=== PATIENT | female | born 1995 | race American Indian/Alaskan Native ===

== ENCOUNTER 2017-03-19 17:33 | Emergency (ER) | payer OTHER ==
[2017-03-19 18:10] LABS: Basophils % (Auto) 0.8 % (0.0-1.8); Eosinophils % (Auto) 4.4 % (0.0-4.3); Hematocrit 39.6 % (30.3-42.9); Hemoglobin 13.1 gm/dl (10.1-14.3); Mean Corpuscular HGB Conc 33 % (30-34); Mean Corpuscular Hemoglobin 28 pg (28-32); Mean Corpuscular Volume 84 fl (79-97); Red Blood Count 4.71 M/mm3 (3.65-5.03); Red Cell Distribution Width 14.2 % (13.2-15.2); White Blood Count 8.4 K/mm3 (4.5-11.0)
[2017-03-19 18:16] LABS: Platelet Count 252 K/mm3 (140-440)
[2017-03-19 18:24] LABS: Bilirubin,Urine NEG (Negative); Blood,Urine NEG (Negative); Ketones,Urine NEG (Negative); Leukocyte Esterase,Urine NEG (Negative); Mucus,Urine FEW /HPF; Nitrite,Urine NEG (Negative); Protein,Urine <15 mg/dL mg/dL (Negative); Urobilinogen,Urine < 2.0 mg/dL (<2.0); WBC,Urine < 1.0 /HPF (0.0-6.0)
[2017-03-19 18:32] LABS: Alanine Aminotransferase 16 units/L (7-56); Albumin 3.7 g/dL (3.9-5); Albumin/Globulin Ratio 1.1 %; Alkaline Phosphatase 78 units/L (35-129); Anion Gap 15 mmol/L; BUN/Creatinine Ratio 14.28; Blood Urea Nitrogen 10 mg/dL (7-17); Calcium 8.7 mg/dL (8.4-10.2); Carbon Dioxide 24 mmol/L (22-30); Chloride 103.2 mmol/L (98-107); Glucose 97 mg/dL (65-100); Lipase 26 units/L (13-60); Potassium 4.3 mmol/L (3.6-5.0); Sodium 138 mmol/L (137-145)
[2017-03-19] MEDS ORDERED: TORADOL IM ONE (20:48)
--- NOTE | 2017-03-19 20:54 | Emergency Department Report ---
HPI - General Chief Complaint: Abdominal Pain Time Seen by Provider: 03/19/17 19:02 - HPI HPI: The patient is 21-year-old female presents for evaluation of chest pain. The patient reports chest pain for the past 10 days, left side in location, 7/10 in severity, sharp in quality, chest pain with movement of the left arm. She states that she is experiencing similar pains in previous months. The patient denies fever, trauma to the chest, cough, dyspnea, syncope, hemoptysis, unilateral leg swelling, oral contraceptive use, recent immobilization, history of DVT or PE, recent cancer, history of familial coagulation disorder. ED Past Medical Hx - Past Medical History Previous Medical History?: No - Surgical History Past Surgical History?: No - Social History Smoking Status: Never Smoker Substance Use Type: Alcohol, Marijuana, Tranquilizers - Medications Home Medications: Home Medications Medication Instructions Recorded Confirmed Last Taken Type Omeprazole Magnesium [PriLOSEC Otc] 20 mg PO QDAY #14 tablet. 03/19/17 Unknown Rx traMADol [Ultram 50 MG tab] 50 mg PO Q6HR PRN #10 tablet 03/19/17 Unknown Rx ED Review of Systems ROS: Stated complaint: LT BREAST PAIN/HEADACHES/ABD PAIN Other details as noted in HPI Constitutional: denies: fever ENT: denies: throat or neck pain Respiratory: denies: cough, shortness of breath Cardiovascular: reports chest pain Endocrine: denies unexplained weight loss or gain Gastrointestinal: denies: abdominal pain, nausea Genitourinary: denies: dysuria Musculoskeletal: denies: leg swelling Skin: denies: rash Neurological: denies: headache Hematological/Lymphatic: denies: easy bleeding or easy bruising Psych: denies sadness or hopelessness Physical Exam - Physical Exam Vital Signs: Vital Signs 03/19/17 17:44 Temperature 98.7 F Pulse Rate 91 H Respiratory 17 Rate Blood Pressure 123/80 O2 Sat by Pulse 100 Oximetry Physical Exam: General: well-nourished, well-developed, no acute distress Head: Normocephalic, atraumatic Eyes: normal sclera ENT: Mucous membranes are pink and moist Neck: trachea midline, neck supple, No neck stiffness, no cervical adenopathy Respiratory: Breath sounds equal bilaterally, no wheezing, rales, or rhonchi Cardio: S1 and S2 present, no murmurs, rubs, gallops, capillary refill is brisk Abdomen: Normoactive bowel sounds, soft abdomen, no rigidity, no guarding or rebound tenderness Chest WALL/Back: No tenderness to palpation of the chest wall, no CVA tenderness with percussion Musc: No pitting edema Skin: No rash Neuro: no facial drooping, normal speech Psych: Normal affect ED Course Vital Signs 03/19/17 17:44 Temperature 98.7 F Pulse Rate 91 H Respiratory 17 Rate Blood Pressure 123/80 O2 Sat by Pulse 100 Oximetry ED Medical Decision Making - Lab Data Result diagrams: 03/19/17 17:57 03/19/17 17:57 - Medical Decision Making The patient was seen and examined by myself. The patient is placed on a air reduction equipment operator and continuous pulse ox. On initial evaluation, the patient was found to be in no distress. EKG was negative for findings suggestive of acute cardiac infarct. Labs and imaging are obtained. The patient is given an IM dose of Toradol for her pain. Chest x-ray is negative for pneumothorax, focal consolidation, pulmonary vascular congestion, pleural effusion, or other obvious acute cardiopulmonary disease process. Lab results were non-concerning including levels of troponin, WBC, hemoglobin, hematocrit, electrolytes, renal function. The patient was reevaluated and reported that their symptoms were markedly improved. As the patient has a KYRA risk score less than 2, and a well 's score less than 2, the patient is at low risk of ACS or pulmonary emboli etiology of their symptoms. The patient is stable for discharge with outpatient follow-up. The patient is given follow-up and return instructions. The patient expressed understanding and agreed with the plan. The patient is discharged in stable condition. Critical care attestation.: If time is entered above; I have spent that time in minutes in the direct care of this critically ill patient, excluding procedure time. ED Disposition Clinical Impression: Acute chest pain Disposition: DISCHARGED TO HOME OR SELFCARE Is pt being admited?: No Does the pt Need Aspirin: No Condition: Stable Instructions: Abdominal Pain (ED), Chest Pain (ED) Referrals: PRIMARY CARE, [Primary Care Provider] - 3-5 Days Time of Disposition: 21:43
[2017-03-19 22:50] VITALS: BP 113/69
--- NOTE | 2017-03-20 10:30 | XRay Report ---
AP CHEST: HISTORY: chest pain AP view of the chest demonstrates a normal mediastinal and cardiac contour with clear lungs and normal bony and soft tissue structures. IMPRESSION: Unremarkable AP chest.
== END 2017-03-19 22:50 | disposition home or self-care (01) ==
LOC: ED 17:33
DX: R07.89 Other chest pain (principal); F12.10 Cannabis abuse, uncomplicated
CPT/HCPCS: 36415; 71010; 80053; 81001; 83690; 84703; 85025; 96372; 99284; J1885

== ENCOUNTER 2018-07-24 14:22 | Emergency (ER) | payer OTHER ==
[2018-07-24 15:09] VITALS: BP 120/69
--- NOTE | 2018-07-24 18:24 | Emergency Department Report ---
ED Rash HPI - HPI Chief Complaint: Skin Rash Stated Complaint: RASH Duration: 1 week Location: Neck Suspected Cause: Unknown Rash Symptoms: Yes Itching, No Facial Swelling, No Tongue/Oral Swelling, No Breathing Difficulties, No Choking Sensation, No Wheezing/Dyspnea, No Peeling, No Blistering, No Fever, No Lightheaded, No Malaise, No Myalgias Other History: This is a 22-year-old -[place] female presents with rash for 1 month. She is apply Neosporin and home remedies with no improvement of symptoms. Patient states rash started out on the right side of neck and spread around neck. Patient reports rash is itchy and soler. Patient denies drainage , swelling, ED Review of Systems ROS: Stated complaint: RASH Other details as noted in HPI Constitutional: denies: chills, fever Respiratory: denies: cough, shortness of breath, wheezing Cardiovascular: denies: chest pain, palpitations Skin: rash (neck). denies: lesions Neurological: denies: headache, weakness, paresthesias Psychiatric: denies: anxiety, depression ED Past Medical Hx - Past Medical History Hx Arthritis: No - Surgical History Hx Appendectomy: No - Social History Smoking Status: Current Every Day Smoker Substance Use Type: Marijuana - Medications Home Medications: Home Medications Medication Instructions Recorded Confirmed Last Taken Type Omeprazole Magnesium [PriLOSEC Otc] 20 mg PO QDAY #14 tablet. 03/19/17 Unknown Rx traMADol [Ultram 50 MG tab] 50 mg PO Q6HR PRN #10 tablet 03/19/17 Unknown Rx Diphenhydramine HCl/Zinc Acet 28.3 gm TP QID #1 cream..g. 07/24/18 Unknown Rx [Benadryl Itch Stopping Crm] Triamcinolone 0.5% [Kenalog 0.5% 1 applic TP TID #1 tube 07/24/18 Unknown Rx CREAM] Rash Exam - Exam General: Vital signs noted. No distress. Alert and acting appropriately. HEENT: No Periorbital Edema, No Conjuctival Injection, No Chemosis, No Perioral Edema, No Tongue Edema, No Uvular Edema, No Compromised Airway, No Drooling Lungs: Yes Good Air Exchange (Normal Breath Sounds), No Wheezes, No Ronchi, No Stridor, No Cough, No Labored Respirations, No Retractions, No Use of Accessory Muscles, No Other Abnormal Lung Sounds Heart: Yes Regular, No Murmur Skin: Yes Maculopapular Rash (erythematous scaling rash around her neck), Yes Erythema, No Morbilliform rash, No Bulla(e), No Excoriations, No Weeping, No Tenderness, No Edema, No Encrustations ED Course Vital Signs 07/24/18 15:03 Pulse Rate 79 Blood Pressure 120/69 O2 Sat by Pulse 99 Oximetry ED Medical Decision Making - Medical Decision Making Patient was examined by me. Vitals are normal and patient is in no acute distress. Physical findings consistent with contact dermatitis to neck. Given dexamethasone 8 mg IM once while in ER. Start triamcinolone cream and Benadryl topical gel. She agrees with ER plan. Patient discharged home in stable condition. 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 Follow up with PCP in 2-3 days. Critical care attestation.: If time is entered above; I have spent that time in minutes in the direct care of this critically ill patient, excluding procedure time. ED Disposition Clinical Impression: Rash of neck Contact dermatitis Qualifiers: Contact dermatitis type: irritant Contact dermatitis trigger: unspecified trigger Qualified Code(s): L24.9 - Irritant contact dermatitis, unspecified cause Disposition: - TO HOME OR SELFCARE Is pt being admited?: No Does the pt Need Aspirin: No Condition: Stable Instructions: Contact Dermatitis (ED) Additional Instructions: Apply a thin layer of triamcinolone cream twice a day for 5-10 days. Wash area prior to applying cream. Use Benadryl topical gel for itching. Follow-up with dermatology and allergy specialists for further testing. Prescriptions: Diphenhydramine HCl/Zinc Acet [Benadryl Itch Stopping Crm] 28.3 gm TP QID #1 cream..g. Triamcinolone 0.5% [Kenalog 0.5% CREAM] 1 applic TP TID #1 tube Referrals: [facility] [Provider Group] - 3-5 Days [facility] [Provider Group] - 3-5 Days Time of Disposition: 18:33 Print Language: VIETNAMESE
[2018-07-24] MEDS ORDERED: DECADRON IM ONE (18:26)
== END 2018-07-24 18:51 | disposition home or self-care (01) ==
LOC: ED 14:22
DX: L25.9 Unspecified contact dermatitis, unspecified cause (principal); F17.200 Nicotine dependence, unspecified, uncomplicated; F12.90 Cannabis use, unspecified, uncomplicated
CPT/HCPCS: 96372; 99282; J1100

== ENCOUNTER 2018-12-05 17:22 | Emergency (ER) | payer OTHER ==
[2018-12-05 17:31] VITALS: BP 129/53
--- NOTE | 2018-12-05 17:31 | Emergency Department Report ---
Blank Doc - Documentation Documentation: This is a 23-year-old female that presents with left lower back pain radiates to left lower abdominal pain. Patient also stated has some vaginal spotting. Denies any nausea or vomiting. Denies any urinary symptoms. Denies other symptoms or compliant. This initial assessment diagnostic orders/clinical plan/treatment(s) is/are subject to change based on patient's health status, clinical progression and re- assessment by fellow clinical providers in the ED. Further treatment and workup at subsequent clinical providers discretion. Patient/guardians urged not to elope from ED s their condition may be serious if not clinically assessed and managed. Initial orders include: 1-Patient sent to [facility] for further evaluation and treatment 2- Labs 3- UA
[2018-12-05 18:54] LABS: Basophils % (Auto) 0.7 % (0.0-1.8); Eosinophils # (Auto) 0.2 K/mm3 (0.0-0.4); Eosinophils % (Auto) 3.5 % (0.0-4.3); Hematocrit 40.9 % (30.3-42.9); Hemoglobin 14.2 gm/dl (10.1-14.3); Lymphocytes # (Auto) 2.7 K/mm3 (1.2-5.4); Lymphocytes % (Auto) 43.8 % (13.4-35.0); Mean Corpuscular HGB Conc 35 % (30-34); Mean Corpuscular Volume 84 fl (79-97); Monocytes # (Auto) 0.5 K/mm3 (0.0-0.8); Monocytes % (Auto) 7.3 % (0.0-7.3); Platelet Count 288 K/mm3 (140-440); Red Blood Count 4.86 M/mm3 (3.65-5.03); Red Cell Distribution Width 13.1 % (13.2-15.2)
[2018-12-05 19:31] LABS: Alanine Aminotransferase 9 units/L (7-56); Albumin 4.3 g/dL (3.9-5); BUN/Creatinine Ratio 8; Blood Urea Nitrogen 4 mg/dL (7-17); Calcium 9.2 mg/dL (8.4-10.2); Hemolysis Index 10
[2018-12-05 20:31] LABS: Bacteria,Urine 1+ /HPF (Negative); Bilirubin,Urine NEG (Negative); Blood,Urine NEG (Negative); Color,Urine Yellow (Yellow); Protein,Urine <15 mg/dL mg/dL (Negative); RBC,Urine < 1.0 /HPF (0.0-6.0); Urobilinogen,Urine < 2.0 mg/dL (<2.0)
== END 2018-12-05 19:14 | disposition left against medical advice (07) ==
LOC: ED 17:22
DX: R10.2 Pelvic and perineal pain (principal); Z53.21 Procedure and treatment not carried out due to patient leaving prior to being seen by health care provider
CPT/HCPCS: 36415; 80053; 81001; 84702; 85025

== ENCOUNTER 2018-12-06 12:11 | Emergency (ER) | payer OTHER ==
[2018-12-06 12:59] VITALS: BP 116/57
--- NOTE | 2018-12-06 13:01 | Emergency Department Report ---
Blank Doc - Documentation Documentation: 23 year ole female presents to ED c/o of pain to pelvic region for 2-3 days and no menses since first week October. No fever or chills. Denies vaginal discharge Plan Labs and urine
[2018-12-06 13:34] LABS: Basophils # (Auto) 0.1 K/mm3 (0.0-0.1); Eosinophils # (Auto) 0.2 K/mm3 (0.0-0.4); Eosinophils % (Auto) 3.2 % (0.0-4.3); Hematocrit 40.9 % (30.3-42.9); Hemoglobin 13.9 gm/dl (10.1-14.3); Lymphocytes # (Auto) 2.3 K/mm3 (1.2-5.4); Lymphocytes % (Auto) 42.5 % (13.4-35.0); Mean Corpuscular HGB Conc 34 % (30-34); Mean Corpuscular Volume 85 fl (79-97); Monocytes # (Auto) 0.4 K/mm3 (0.0-0.8); Monocytes % (Auto) 8.2 % (0.0-7.3); Platelet Count 310 K/mm3 (140-440); Red Cell Distribution Width 12.9 % (13.2-15.2)
[2018-12-06 13:55] LABS: BUN/Creatinine Ratio 8; Blood Urea Nitrogen 4 mg/dL (7-17); Hemolysis Index 373
[2018-12-06 13:56] LABS: Bilirubin,Direct < 0.2 mg/dL (0-0.2)
[2018-12-06 13:57] LABS: Alanine Aminotransferase 10 units/L (7-56)
--- NOTE | 2018-12-06 14:22 | Emergency Department Report ---
ED Female HPI - General Chief complaint: Abdominal Pain Stated complaint: STOMACH PAIN/SIDE PAIN Time Seen by Provider: 12/06/18 12:55 Source: patient Mode of arrival: Ambulatory Limitations: No Limitations - History of Present Illness Initial comments: This is a 23-year-old female who presents ED complaining of vaginal spotting and lower pelvic pain for the past week. Patient describes pain as stabbing and aching pain which is have not 10 intensity. She denies dysuria, vaginal discharge, vomiting, diarrhea, chest pain. Patient admits mild nausea from time to time. She states last menstrual period was 10/16/2018. Complaint: vaginal bleeding -: Gradual, week(s) (1) Radiation: non-radiating Severity: moderate Severity scale (0 -10): 6 Quality: cramping, stabbing, aching Worsens with: none Are you Now?: Yes Last Menstrual Period: 10/16/18 EDC: 07/23/19 Associated Symptoms: abdominal pain, nausea/vomiting - Related Data Sexually active: Yes Previous Rx's Medication Instructions Recorded Last Taken Type Omeprazole Magnesium [PriLOSEC Otc] 20 mg PO QDAY #14 tablet. 03/19/17 Unknown Rx traMADol [Ultram 50 MG tab] 50 mg PO Q6HR PRN #10 tablet 03/19/17 Unknown Rx Diphenhydramine HCl/Zinc Acet 28.3 gm TP QID #1 cream..g. 07/24/18 Unknown Rx [Benadryl Itch Stopping Crm] Triamcinolone 0.5% [Kenalog 0.5% 1 applic TP TID #1 tube 07/24/18 Unknown Rx CREAM] Acetaminophen [Tylenol 8 Hour] 650 mg PO TID #30 tablet.er 12/06/18 Unknown Rx Doxylamine Succinate/Vit B6 2 each PO QHS #40 tablet. 12/06/18 Unknown Rx [Kenn Lea 10-10 mg Tablet] No.137/Iron/Folic Acd 1 each PO DAILY #30 tablet 12/06/18 Unknown Rx [ Vitamin Tablet] Allergies Allergy/AdvReac Type Severity Reaction Status Date / Time No Known Allergies Allergy Unverified 03/19/17 17:42 ED Review of Systems ROS: Stated complaint: STOMACH PAIN/SIDE PAIN Other details as noted in HPI Comment: All other systems reviewed and negative ED Past Medical Hx - Past Medical History Hx Arthritis: No - Surgical History Hx Appendectomy: No - Social History Smoking Status: Never Smoker Substance Use Type: Marijuana - Medications Home Medications: Home Medications Medication Instructions Recorded Confirmed Last Taken Type Omeprazole Magnesium [PriLOSEC Otc] 20 mg PO QDAY #14 tablet. 03/19/17 Unknown Rx traMADol [Ultram 50 MG tab] 50 mg PO Q6HR PRN #10 tablet 03/19/17 Unknown Rx Diphenhydramine HCl/Zinc Acet 28.3 gm TP QID #1 cream..g. 07/24/18 Unknown Rx [Benadryl Itch Stopping Crm] Triamcinolone 0.5% [Kenalog 0.5% 1 applic TP TID #1 tube 07/24/18 Unknown Rx CREAM] Acetaminophen [Tylenol 8 Hour] 650 mg PO TID #30 tablet.er 12/06/18 Unknown Rx Doxylamine Succinate/Vit B6 2 each PO QHS #40 tablet. 12/06/18 Unknown Rx [Kenn Lea 10-10 mg Tablet] No.137/Iron/Folic Acd 1 each PO DAILY #30 tablet 12/06/18 Unknown Rx [ Vitamin Tablet] ED Physical Exam - General Limitations: No Limitations General appearance: alert, in no apparent distress - Head Head exam: Present: atraumatic, normocephalic - Eye Eye exam: Present: normal appearance - ENT ENT exam: Present: mucous membranes moist - Neck Neck exam: Present: normal inspection - Respiratory Respiratory exam: Present: normal lung sounds bilaterally. Absent: respiratory distress - Cardiovascular Cardiovascular Exam: Present: regular rate, normal rhythm. Absent: systolic murmur, diastolic murmur, rubs, gallop - GI/Abdominal GI/Abdominal exam: Present: soft, normal bowel sounds. Absent: distended, tenderness, rebound, mass - Extremities Exam Extremities exam: Present: normal inspection - Back Exam Back exam: Present: normal inspection - Neurological Exam Neurological exam: Present: alert, oriented X3 - Psychiatric Psychiatric exam: Present: normal affect, normal mood - Skin Skin exam: Present: warm, dry, intact, normal color. Absent: rash ED Course Vital Signs 12/06/18 12/06/18 12:55 21:25 Temperature 97.5 F L Pulse Rate 70 102 H Respiratory 16 17 Rate Blood Pressure 116/57 O2 Sat by Pulse 100 99 Oximetry ED Medical Decision Making - Lab Data Result diagrams: 12/06/18 13:23 12/06/18 13:23 - Radiology Data Radiology results: report reviewed, image reviewed FINAL REPORT EXAM: US OB TRANSVAGINAL HISTORY: bleed TECHNIQUE: Ultrasound obstetrical transvaginal PRIORS: None. FINDINGS: There is gestational sac within the uterus pole is identified with crown-rump length 1.09 centimeters corresponding to estimated gestational age of 7 weeks 1 day Based on today's exam estimated date of delivery is July 24, 2019 There is a yolk sac identified. cardiac activity is present with heart rate of 128 beats per minute right ovary 3.4 x 1.9 x 2.2 centimeters. There echogenic 1.6 centimeter focus within the right ovary which may may reflect a hemorrhagic cyst. Left ovary is 2.1 x 1.4 x 1.9 centimeters. Normal sonographic appearance the left ovary IMPRESSION: Live intrauterine gestation estimated at 7 weeks 1 day Possible hemorrhagic cyst within the left ovary Transcribed By: YESY Dictated By: BENTON MARIA MD Electronically Authenticated By: BENTON MARIA MD Signed Date/Time: 12/06/182007 - Medical Decision Making This is a 20-year-old female presents to ED with positive test with vaginal spotting. Labs consistent with . Ultrasound ordered to rule out ectopic . Discussed findings so far with palpation. Ultrasound ordered. Report above Chart will be signed out to colleague in the fast track. Discussed the patient she will need to follow up with [facility]. She understands instructions. Critical care attestation.: If time is entered above; I have spent that time in minutes in the direct care of this critically ill patient, excluding procedure time. ED Disposition Clinical Impression: Vaginal spotting, Vaginal bleeding during Disposition: DC-01 TO HOME OR SELFCARE Is pt being admited?: No Does the pt Need Aspirin: No Condition: Stable Instructions: Threatened Miscarriage (ED), (ED), Abdominal Pain (ED) Prescriptions: Doxylamine Succinate/Vit B6 [Kenn Lea 10-10 mg Tablet] 2 each PO QHS #40 tablet. Acetaminophen [Tylenol 8 Hour] 650 mg PO TID #30 tablet.er No.137/Iron/Folic Acd [ Vitamin Tablet] 1 each PO DAILY #30 tablet Referrals: [facility] MD MELECIO [Primary Care Provider] - 3-5 Days SHARIFA CARROLL MD [Staff Physician] - 3-5 Days CONG CARROLL MD [Referring] - 3-5 Days MILI CARROLL MD [Referring] - 3-5 Days Forms: Work/School Release Form(ED)
[2018-12-06 16:09] LABS: Amorphous Crystals,Urine 1+; Bilirubin,Urine NEG (Negative); Blood,Urine NEG (Negative); Color,Urine Yellow (Yellow); Mucus,Urine 3+ /HPF; RBC,Urine < 1.0 /HPF (0.0-6.0); Urobilinogen,Urine < 2.0 mg/dL (<2.0)
[2018-12-06 16:12] LABS: HCG Qualitative,Urine Positive (Negative)
[2018-12-06 17:03] LABS: Bilirubin,Urine NEG (Negative); Blood,Urine NEG (Negative); Color,Urine Yellow (Yellow); Mucus,Urine 3+ /HPF
--- NOTE | 2018-12-06 20:08 | Ultrasound Report ---
FINAL REPORT EXAM: US OB TRANSVAGINAL HISTORY: bleed TECHNIQUE: Ultrasound obstetrical transvaginal PRIORS: None. FINDINGS: There is gestational sac within the uterus pole is identified with crown-rump length 1.09 centimeters corresponding to estimated gestation al age of 7 weeks 1 day Based on today's exam estimated date of delivery is July 24, 2019 There is a yolk sac identified. cardiac activity is present with heart rate of 128 beats per minute right ovary 3.4 x 1.9 x 2.2 centimeters. There echogenic 1.6 centimeter focus within the right ovary which may may reflect a hem orrhagic cyst. Left ovary is 2.1 x 1.4 x 1.9 centimeters. Normal sonographic appearance the left ovary IMPRESSION: Live intrauterine gestation estimated at 7 weeks 1 day Possible hemorrhagic cyst within the left ovary
--- NOTE | 2018-12-06 20:11 | Ultrasound Report ---
FINAL REPORT EXAM: US OB < = 14 WEEKS FETUS HISTORY: bleed TECHNIQUE: PRIORS: None. FINDINGS: There is gestational sac within the uterus pole is identified with crown-rump length 1.09 centimeters corresponding to estimated gestation al age of 7 weeks 1 day Based on today's exam estimated date of delivery is July 24, 2019 There is a yolk sac identified. cardiac activity is present with heart rate of 128 beats per minute right ovary 3.4 x 1.9 x 2.2 centimeters. There echogenic 1.6 centimeter focus within the right ovary which may may reflect a hem orrhagic cyst. Left ovary is 2.1 x 1.4 x 1.9 centimeters. Normal sonographic appearance the left ovary IMPRESSION: Live intrauterine gestation estimated at 7 weeks 1 day Possible hemorrhagic cyst within the left ovary
== END 2018-12-06 21:25 | disposition home or self-care (01) ==
LOC: ED 12:11
DX: O26.851 Spotting complicating pregnancy, first trimester (principal); O46.91 Antepartum hemorrhage, unspecified, first trimester; Z3A.01 Less than 8 weeks gestation of pregnancy
CPT/HCPCS: 36415; 76801; 76817; 80048; 80076; 81001; 81025; 84702; 85025; 99284

== ENCOUNTER 2019-08-04 02:11 | Inpatient (IN) | payer OTHER ==
--- NOTE | 2019-08-04 04:23 | Ultrasound Report ---
US OB follow up, US OB BPP wo non-stress INDICATION / CLINICAL INFORMATION: leaking fluid. COMPARISON: 12/06/2018 FINDINGS: Single viable intrauterine gestation in the cephalic presentation. heart rate 162 bpm Grade 1 placenta is fundal and free of the os. The MAURICE is 17.7. measurements: BPD 9.1 equals 37 weeks Head circumference 32.7 equal to 37 weeks 1 day Abdominal circumference 33.5 equal to 37 weeks 3 days Femur length 7.4 equal to 37 weeks 6 days Estimated body weight 3205 g. Biophysical profile was performed. Score is 8 of 8. IMPRESSION: 1. Single live 37 week 3 day intrauterine gestation with normal MAURICE. Signer Name: Thor Lr MD Signed: 08/04/2019 4:18 AM Workstation Name: [id number]
[2019-08-04] MEDS ORDERED: NALOXONE IV PRN (05:04)
[2019-08-04] MEDS ORDERED: ZOFRAN IV PRN (05:04)
[2019-08-04] MEDS ORDERED: MINERAL OIL PO PRN (05:04)
[2019-08-04] MEDS ORDERED: BRETHINE SUB-Q PRN (05:04)
[2019-08-04] MEDS ORDERED: SUBLIMAZE IV PRN (05:04)
[2019-08-04] MEDS ORDERED: AMPICILLIN/NS 2 GM/100 ML 2 GM/100 ML BAG IV ONE (05:04)
[2019-08-04] MEDS ORDERED: XYLOCAINE 2% INFILTRATI ONE (05:04)
[2019-08-04] MEDS ORDERED: PHENERGAN PO PRN (05:04)
[2019-08-04] MEDS ORDERED: BRETHINE IVP PRN (05:04)
[2019-08-04 05:45] LABS: Hematocrit 31.5 % (30.3-42.9); Hemoglobin 10.5 gm/dl (10.1-14.3); Mean Corpuscular HGB Conc 33 % (30-34); Mean Corpuscular Volume 82 fl (79-97); Platelet Count 250 K/mm3 (140-440); Red Blood Count 3.82 M/mm3 (3.65-5.03); Red Cell Distribution Width 14.5 % (13.2-15.2)
[2019-08-04] MEDS ORDERED: PITOCin/NS 20 UNIT/1000ML DRIP 20 UNITS/1,000 ML BAG IV SCH (06:00)
[2019-08-04] MEDS: LACTATED RINGERS 1,000 ML IV SCH (06:00)
[2019-08-04 06:15] LABS: Hepatitis C Virus Antibody Non-Reactive (NonReactive)
[2019-08-04] MEDS: AMPICILLIN/NS 1 GM/50 ML 1 GM/50 ML BAG IV SCH ×4 (09:44→21:49)
[2019-08-04 10:28] LABS: Amphetamine Screen,Urine PRESUMPTIVE NEGATIVE; Benzodiazepines Screen,Urine PRESUMPTIVE NEGATIVE; Cannabinoid Screen,Urine PRESUMPTIVE NEGATIVE; Cocaine Screen,Urine PRESUMPTIVE NEGATIVE; Methadone Screen,Urine PRESUMPTIVE NEGATIVE; Opiate Screen,Urine PRESUMPTIVE NEGATIVE
[2019-08-04] MEDS: PITOCin/NS 30 UNIT/500ML 30 UNITS/500 ML BAG IV SCH (17:27)
--- NOTE | 2019-08-04 18:33 | History and Physical Report ---
History of Present Illness Date of examination: 08/04/19 Date of admission: 08/04/19 06:14 Chief complaint: pain and leaking History of present illness: This is a 23 yo at 40+4 weeks here for walkin for leaking noted to be grossly ruptured and 2cm. She has had a CNM and home nurse that was planning to do a home . Records unavailable Past History Past Medical History: no pertinent history Past Surgical History: no surgical history Family/Genetic History: none Social history: single. denies: smoking, alcohol abuse, prescription drug abuse - Obstetrical History Expected Date of Delivery: 07/24/19 Actual Gestation: 41 Week(s) 4 Day(s) : 1 Para: 0 Hx # Term Pregnancies: 0 Number of Pregnancies: 0 Spontaneous Abortions: 0 Induced : 0 Number of Living Children: 0 Medications and Allergies Allergies Allergy/AdvReac Type Severity Reaction Status Date / Time No Known Allergies Allergy Unverified 03/19/17 17:42 Home Medications Medication Instructions Recorded Confirmed Last Taken Type Omeprazole Magnesium [PriLOSEC Otc] 20 mg PO QDAY #14 tablet. 03/19/17 Unknown Rx traMADol [Ultram 50 MG tab] 50 mg PO Q6HR PRN #10 tablet 03/19/17 Unknown Rx Diphenhydramine HCl/Zinc Acet 28.3 gm TP QID #1 cream..g. 07/24/18 Unknown Rx [Benadryl Itch Stopping Crm] Triamcinolone 0.5% [Kenalog 0.5% 1 applic TP TID #1 tube 07/24/18 Unknown Rx CREAM] Acetaminophen [Tylenol 8 Hour] 650 mg PO TID #30 tablet.er 12/06/18 Unknown Rx Doxylamine Succinate/Vit B6 2 each PO QHS #40 tablet. 12/06/18 Unknown Rx [Kenn Lea 10-10 mg Tablet] No.137/Iron/Folic Acd 1 each PO DAILY #30 tablet 12/06/18 Unknown Rx [ Vitamin Tablet] Active Meds: Active Medications Butorphanol Tartrate (Stadol) 2 mg IV Q2H PRN PRN Reason: Pain , Severe (7-10) Ephedrine Sulfate (Ephedrine Sulfate) 10 mg IV Q2M PRN PRN Reason: Hypotension Fentanyl (Sublimaze) 100 mcg IV Q2H PRN PRN Reason: Labor Pain Oxytocin/Sodium Chloride (Pitocin/Ns 20 Unit/1000ml Drip) 20 units in 1,000 mls @ 125 mls/hr IV DIRECT DILSHAD Oxytocin/Sodium Chloride (Pitocin/Ns 30 Unit/500ml) 30 units in 500 mls @ 4 mls/hr IV TITR DILSHAD; Protocol Last Admin: 08/04/19 17:27 Dose: 2 ml/hr, 2 mls/hr Documented by: Lactated Ringer's (Lactated Ringers) 1,000 mls @ 125 mls/hr IV DIRECT DILSHAD Last Admin: 08/04/19 06:00 Dose: 125 mls/hr Documented by: Ampicillin Sodium (Ampicillin/Ns 1 Gm/50 Ml) 1 gm in 50 mls @ 100 mls/hr IV Q4HR DILSHAD; Protocol Last Admin: 08/04/19 18:08 Dose: 100 mls/hr Documented by: Mineral Oil (Mineral Oil) 30 ml PO QHS PRN PRN Reason: Constipation Naloxone HCl (Narcan 0.4 Mg/1 Ml) 0.1 mg IV Q2MIN PRN PRN Reason: Res Rate </= 8 or 02 SAT < 92% Ondansetron HCl (Zofran) 4 mg IV Q8H PRN PRN Reason: Nausea And Vomiting Promethazine HCl (Phenergan) 25 mg PO Q6H PRN PRN Reason: Nausea And Vomiting Terbutaline Sulfate (Brethine) 0.25 mg SUB-Q ONCE PRN PRN Reason: Hyperstimulation/Hypertonicity Terbutaline Sulfate (Brethine) 0.25 mg IVP ONCE PRN PRN Reason: Hyperstimulation/Hypertonicity Review of Systems All systems: negative - Vital Signs Vital signs: Vital Signs Pulse Pulse Ox 100 H 97 08/04/19 02:24 08/04/19 02:24 Temp Pulse Resp BP Pulse Ox 98.4 F 97 H 18 141/67 94 08/04/19 17:30 08/04/19 18:09 08/04/19 07:35 08/04/19 18:09 08/04/19 10:31 - Physical Exam Breasts: Positive: normal Cardiovascular: Regular rate, Normal S1 Lungs: Positive: Clear to auscultation, Normal air movement Abdomen: Positive: normal appearance, soft, normal bowel sounds. Negative: distention, tenderness, guarding Genitourinary (Female): Positive: normal external genitalia, normal perenium Vagina: Positive: normal moisture Uterus: Positive: normal size, normal contour Deep Tendon Reflex Grade: Normal +2 - Obstetrical FHR: category 1 Cervical Dilatation: 2 Cervical Effacement Percentage: 100 station: -3 Uterine Contraction Pattern: Regular Uterine Contraction Intensity: Moderate Results Result Diagrams: 08/04/19 05:24 All other labs normal. Assessment and Plan A/P IUP 41+4 weeks postdates gbs unknown - abx given initiate augmentation of delivery with pitocin expect vaginal delivery
[2019-08-05] MEDS: STADOL IV PRN ×3 (00:14→14:08)
[2019-08-05] MEDS: AMPICILLIN/NS 1 GM/50 ML 1 GM/50 ML BAG IV SCH ×4 (03:25→15:45)
[2019-08-05] MEDS: PITOCin/NS 30 UNIT/500ML 30 UNITS/500 ML BAG IV SCH (08:57)
[2019-08-05] MEDS: LACTATED RINGERS 1,000 ML IV SCH (12:03)
--- NOTE | 2019-08-05 12:52 | Progress Note ---
Assessment and Plan A/P IUP 40+5 weeks post due dates gbs unknown - abx given initiate augmentation of delivery with pitocin expect vaginal delivery Subjective - Subjective Date of service: 08/05/19 Principal diagnosis: Labor Interval history: This is a 23 yo at 40+4 weeks here for walkin for leaking noted to be grossly ruptured and 2cm. She has had a CNM and home nurse that was planning to do a home . Records unavailable Patient reports: movement normal, contractions, no new complaints, no loss of fluid, no vaginal bleeding Objective - Vital Signs Vital Signs: Vital Signs - 12hr 08/05/19 08/05/19 08/05/19 00:52 00:57 01:02 Temperature Pulse Rate 99 H 95 H 96 H Respiratory Rate Blood Pressure O2 Sat by Pulse 98 98 98 Oximetry 08/05/19 08/05/19 08/05/19 01:07 01:12 01:17 Temperature Pulse Rate 97 H 91 H 94 H Respiratory Rate Blood Pressure O2 Sat by Pulse 98 97 98 Oximetry 08/05/19 08/05/19 08/05/19 01:22 01:27 01:32 Temperature Pulse Rate 96 H 95 H 95 H Respiratory Rate Blood Pressure O2 Sat by Pulse 98 97 99 Oximetry 08/05/19 08/05/19 08/05/19 01:37 01:42 01:47 Temperature Pulse Rate 97 H 96 H 96 H Respiratory Rate Blood Pressure O2 Sat by Pulse 99 98 97 Oximetry 08/05/19 08/05/19 08/05/19 01:52 01:57 02:02 Temperature Pulse Rate 96 H 97 H 97 H Respiratory Rate Blood Pressure O2 Sat by Pulse 98 98 99 Oximetry 08/05/19 08/05/19 08/05/19 02:07 02:12 02:17 Temperature Pulse Rate 104 H 95 H 103 H Respiratory Rate Blood Pressure O2 Sat by Pulse 98 98 98 Oximetry 08/05/19 08/05/19 08/05/19 02:22 02:27 02:32 Temperature Pulse Rate 94 H 97 H 96 H Respiratory Rate Blood Pressure O2 Sat by Pulse 100 100 100 Oximetry 08/05/19 08/05/19 08/05/19 02:37 02:42 02:47 Temperature Pulse Rate 97 H 97 H 95 H Respiratory Rate Blood Pressure O2 Sat by Pulse 97 98 98 Oximetry 08/05/19 08/05/19 08/05/19 02:52 02:57 03:02 Temperature Pulse Rate 97 H 96 H 94 H Respiratory Rate Blood Pressure O2 Sat by Pulse 98 98 98 Oximetry 08/05/19 08/05/19 08/05/19 03:07 03:12 03:17 Temperature Pulse Rate 94 H 94 H 95 H Respiratory Rate Blood Pressure O2 Sat by Pulse 100 100 99 Oximetry 08/05/19 08/05/19 08/05/19 06:53 06:58 07:03 Temperature Pulse Rate 98 H 101 H 98 H Respiratory Rate Blood Pressure O2 Sat by Pulse 99 99 99 Oximetry 08/05/19 08/05/19 08/05/19 07:08 07:13 07:17 Temperature Pulse Rate 97 H 98 H 94 H Respiratory Rate Blood Pressure O2 Sat by Pulse 98 98 94 Oximetry 08/05/19 08/05/19 08/05/19 07:18 07:23 07:28 Temperature Pulse Rate 101 H 95 H 95 H Respiratory Rate Blood Pressure O2 Sat by Pulse 95 98 99 Oximetry 08/05/19 08/05/19 08/05/19 07:33 07:35 07:38 Temperature Pulse Rate 97 H 94 H 98 H Respiratory Rate Blood Pressure O2 Sat by Pulse 99 86 98 Oximetry 08/05/19 08/05/19 08/05/19 07:43 08:25 08:59 Temperature 97.9 F Pulse Rate 95 H 90 Respiratory 18 Rate Blood Pressure 119/62 O2 Sat by Pulse 100 Oximetry 08/05/19 08/05/19 08/05/19 09:29 10:00 10:30 Temperature Pulse Rate 81 88 89 Respiratory Rate Blood Pressure 113/61 120/65 123/62 O2 Sat by Pulse Oximetry - Exam Breasts: normal Cardiovascular: Regular rate, Normal S1 Lungs: Clear to auscultation, Normal air movement Abdomen: Present: normal appearance, soft, normal bowel sounds. Absent: distention, tenderness, guarding Vulva: both: normal Uterus: Present: normal. Absent: bogginess, tenderness FHR: auscultation normal Cervical Dilatation: 5 Cervical Effacement Percentage: 100 station: -2 Uterine Contraction Pattern: Regular Uterine Tone Measurement Phase: Contraction Uterine Contraction Intensity: Moderate
[2019-08-05] MEDS ORDERED: REGLAN ONE (16:24)
--- NOTE | 2019-08-05 16:28 | Anesthesia Consultation ---
Anesthesia Consult and Med Hx Date of service: 08/05/19 - Airway Anesthetic Teeth Evaluation: Good ROM Head & Neck: Adequate Mental/Hyoid Distance: Adequate Mallampati Class: Class II Intubation Access Assessment: Good - Pre-Operative Health Status ASA Pre-Surgery Classification: ASA2 Proposed Anesthetic Plan: Spinal - Pulmonary Hx Smoking: No Hx Asthma: No Hx Respiratory Symptoms: No SOB: No COPD: No Home Oxygen Therapy: No Hx Pneumonia: No Hx Sleep Apnea: No - Cardiovascular System Hx Hypertension: No Hx Coronary Artery Disease: No Hx Heart Attack/AMI: No Hx Angina: No Hx Percutaneous Transluminal Coronary Angioplasty (PTCA): No Hx Cardia Arrhythmia: No Hx Pacemaker: No Hx Internal Defibrillator: No Hx Valvular Heart Disease: No Hx Heart Murmur: No Hx Peripheral Vascular Disease: No - Central Nervous System Hx Neuromuscular Disorder: No Hx Seizures: No CVA: No Hx Back Pain: No Hx Psychiatric Problems: No - Gastrointestinal Hx Ulcer: No Hx Gastroesophageal Reflux Disease: No - Endocrine Hx Renal Disease: No Hx End Stage Renal Disease: No Hx Cirrhosis: No Hx Liver Disease: No Hx Insulin Dependent Diabetes: No Hx Non-Insulin Dependent Diabetes: No Hx Thyroid Disease: No Hx Hypothyroidism: No Hx Hyperthyroidism: No - Hematic Hx Anemia: No Hx Sickle Cell Disease: No - Other Systems Hx Alcohol Use: No Hx Substance Use: No Hx Cancer: No Hx Obesity: No
[2019-08-05] MEDS ORDERED: DILAUDID IV PRN ×2 (16:29)
[2019-08-05] MEDS ORDERED: BENADRYL IV PRN (16:29)
[2019-08-05] MEDS ORDERED: ZOFRAN IV PRN ×2 (16:29→18:15)
--- NOTE | 2019-08-05 16:29 | Anesthesia Day of Surgery ---
Anesthesia Day of Surgery - Day of Surgery Patient Examined: Yes Patient H&P Reviewed: Yes Patient is NPO: Yes Beta Blockers: No Cardiac Clearance: No Pulmonary Clearance: No Antonio's Test: N/A
[2019-08-05] MEDS ORDERED: REGLAN IV ONE (17:00)
[2019-08-05] MEDS ORDERED: ANCEF/STERILE WATER 2 GM/20 ML 2 GM/20 ML SYRINGE IV NR (17:00)
[2019-08-05] MEDS ORDERED: PEPCID IV ONE (17:00)
[2019-08-05] MEDS ORDERED: PITOCin/NS 20 UNIT/1000ML DRIP 20 UNITS/1,000 ML BAG IV SCH ×2 (17:00→19:00)
[2019-08-05] MEDS ORDERED: LACTATED RINGERS 1,000 ML IV SCH (17:00)
[2019-08-05] MEDS ORDERED: BICITRA PO ONE (17:00)
--- NOTE | 2019-08-05 17:10 | Event Note ---
Date: 08/05/19 Patient been 6cm for several hours despite pit. She also had some variable decels that became more severe. Patient given option of amnioinfusion trial vs csec for NRFHT. patietn desired to have a primary . We discussed r/b/a of procedure which include but not limited to bleeding infection, damage to pelvic and non pelvic organs risk of hysterectomy and and patient agrees to proceed with primary csearean
[2019-08-05] MEDS ORDERED: ANCEF/STERILE WATER 2 GM/20 ML IV ONE (17:23)
[2019-08-05] MEDS ORDERED: TORADOL ONE (17:25)
[2019-08-05] MEDS ORDERED: DEXMEDETOMIDINE IV ONE (17:25)
[2019-08-05] MEDS ORDERED: NEO SYNEPHRINE ONE (17:25)
[2019-08-05] MEDS ORDERED: ZOFRAN ONE (17:25)
[2019-08-05] MEDS ORDERED: NACL 0.9% IR ONE (17:27)
[2019-08-05] MEDS ORDERED: WATER FOR IRRIG STERILE IR ONE (17:27)
[2019-08-05] MEDS ORDERED: MILK OF MAGNESIA PO PRN (18:15)
[2019-08-05] MEDS ORDERED: DULCOLAX PR PRN (18:15)
[2019-08-05] MEDS ORDERED: NORCO 5/325 PO PRN (18:15)
[2019-08-05] MEDS ORDERED: BENADRYL PO PRN (18:15)
[2019-08-05] MEDS ORDERED: PHENERGAN PO PRN (18:15)
[2019-08-05] MEDS ORDERED: PHENERGAN PR PRN (18:15)
[2019-08-05] MEDS ORDERED: TUCKS PAD TP PRN (18:15)
[2019-08-05] MEDS ORDERED: TYLENOL PO PRN (18:15)
--- NOTE | 2019-08-05 18:19 | Procedure Note ---
OB Delivery Note - Delivery Date of Delivery: 08/05/19 Surgeon: SHARIAF CARROLL Estimated blood loss: other (800cc) - Section Preop diagnosis: nonreassuring FHR tracing Postop diagnosis: same section procedure: section Disposition: PACU Complications: none Narrative: see op note - A at 1 minute: 8 at 5 minutes: 9 Infant Gender: Male (7 pounds 9 oz)
--- NOTE | 2019-08-05 18:23 | Operative Report ---
Operative Report Operative Report: DATE OF OPERATION: 08/05/19 PREOPERATIVE DIAGNOSES: 1. Intrauterine gestation at 40 weeks, in active labor, second stage. 2. NRFHT POSTOPERATIVE DIAGNOSES: 1. Intrauterine gestation at 40 weeks, in active labor, second stage. 2. NRFHT 3. Persistent occiput posterior position. 4 NUchal cord tight, body, and foot OPERATION PERFORMED: Primary low transverse section. SURGEON: Oksana Bojorquez MD ANESTHESIA: Spinal. COMPLICATIONS: None. ESTIMATED BLOOD LOSS: 800 mL. DRAINS: Mcintyre catheter to the bladder. SPECIMENS TO PATHOLOGY: Cord blood for routine testing. OPERATIVE FINDINGS: A viable male infant with Apgars of 8 and 9 and birthweight of 8 pounds 9 ounces was delivered from a cephalic presentation, persistent occiput posterior position. The cord contained 3 vessels. There was normal anterior fundal placenta. The amniotic fluid was clear. The uterus contained one small fundal serosal fibroid , fallopian tubes and ovaries were normal. DESCRIPTION OF OPERATION: The patient was brought to the operating suite in stable condition with epidural anesthesia on board and an indwelling catheter in place in the bladder. The patient was placed supine on the operating room table and rolled to her left side with a wedge. The abdomen was prepped and draped in standard fashion for section. After testing with forceps to assure an adequate anesthetic level, the surgery was commenced. We had counseled the patient extensively regarding the risks of the surgery including but not limited to stroke, embolus, phlebitis, pain, infection, hemorrhage, as well as injury to the and the internal organs such as the bowel, bladder, blood vessels, nerves, kidneys, ureters and pelvic organs. The patient was aware of the postoperative morbidity issues and recovery timeframes. The patient was aware she can form adhesions, which can result in obstruction of loop of bowel or ureter or chronic pain. She was aware that should she have hemorrhage and require blood transfusion, there was a small chance for exposure to hepatitis or HIV disease. With the scalpel, a Pfannenstiel skin incision was made. Dissection was carried down sharply through the subcutaneous tissues and fascia in a transverse plane with the scalpel, electrocautery and curved Salazar scissors. The fascia was sharply freed up superiorly and inferiorly from the underlying rectus muscles, which were bluntly and sharply divided. The peritoneum was entered carefully in a clear space with a curved hemostat. The peritoneal incision was then extended vertically with Metzenbaum scissors. A retractor and bladder blade were placed. A bladder flap was created by incising transversely through the peritoneum and vesicouterine fold and then bluntly dissecting the bladder distally. With the scalpel, a low transverse hysterotomy was commenced. The serosa and myometrium were scored with the scalpel. The uterine cavity was actually entered bluntly with a curved hemostat. The uterine incision was then extended laterally with the soldering machine operator helper's fingers. An intrauterine hand was placed and the head of the was brought up out of the pelvis into the uterine incision. With fundal pressure, he was delivered without difficulty. The nasopharynx and oropharynx were suctioned. The cord was doubly clamped and transected. The was then handed off to the nursery personnel. Apgars were good at 8 and 9. A cord pH was obtained, which subsequently revealed a normal value. Further cord blood was collected for routine testing. Intravenous Pitocin and antibiotics were administered. The placenta was manually removed. The uterine cavity was then curetted with a dry sponge and freed of the remaining membranes. The edges of the uterine incision were grasped with Garza clamps. With the massage and the Pitocin, the uterus began to firm up normally. The uterine incision was then closed in 2 layers of 0 Vicryl sutures. The first suture was placed to the endometrium and myometrium. The second suture was placed through the endopelvic fascia and also reincorporated the bladder flap peritoneum. Peritoneal lavage was then performed. The pelvis and gutters were irrigated and suctioned and cleared of all blood and clots and amniotic fluid. The uterine incision was reinspected to assure hemostasis. The uterus, tubes and ovaries were inspected and were normal. Once we were satisfied with the hemostasis, attention was turned to closure of the abdominal incision. The peritoneum, muscles and fascia were closed in layers using 0-Vicryl sutures. The subcutaneous tissue was closed with 3-0 plain sutures. The skin was closed with a subcuticular suture of 4-0 Vicryl followed by benzoin, Steri-Strips and a Telfa dressing. The patient was moved to the recovery room in stable condition with the Mcintyre catheter draining clear urine. Instruments, sponge and needle counts were reported as correct. Estimated blood loss was 800 mL. There were no complications.
--- NOTE | 2019-08-05 18:24 | Post Anesthesia Evaluation ---
- Post Anesthesia Evaluation Patient Participated: Yes Airway Patent: Yes Stable Respiratory Function: Yes Nausea/Vomiting: No Temp > 96.8F: Yes Pain Manageable: Yes Adequeate Hydration: Yes Anesthesia Complications: No Block Receding Appropriately: Yes Patient on Ventilator: No
[2019-08-05] MEDS ORDERED: SODIUM CHLORIDE FLUSH SYRINGE 10 ML IV NR (19:00)
[2019-08-05] MEDS ORDERED: PITOCin/NS 20 UNIT/1000ML DRIP 20,000 MILLIUNITS/1,000 ML BAG IV ONE (20:15)
[2019-08-06] MEDS: TORADOL IV PRN ×2 (00:09→05:56)
[2019-08-06] MEDS: LACTATED RINGERS 1,000 ML IV SCH (05:56)
[2019-08-06] MEDS ORDERED: M-M-R II VACCINE SUB-Q ONE (06:00)
[2019-08-06] MEDS ORDERED: BOOSTRIX IM ONE (06:00)
[2019-08-06 06:51] LABS: Hematocrit 26.1 % (30.3-42.9); Hemoglobin 8.5 gm/dl (10.1-14.3)
--- NOTE | 2019-08-06 08:05 | Progress Note ---
Assessment and Plan A/P POD1 s/p nrfht with nuchal cord ,bodyx2, and foot Acute anemia 10 -8 on iron routine post op care Subjective - Subjective Date of service: 08/06/19 Principal diagnosis: Labor Interval history: This is a 23 yo at 40+4 weeks here for walkin for leaking noted to be grossly ruptured and 2cm. She has had a CNM and home nurse that was planning to do a home . Records unavailable Patient reports: appetite normal, voiding normally, pain well controlled, ambulating normally : doing well Objective - Vital Signs Latest vital signs: Vital Signs Temp Pulse Resp BP BP Pulse Ox 08/06/19 05:27 98.2 F 93 H 20 105/53 96 08/06/19 00:42 98.5 F 86 20 110/53 97 08/05/19 20:10 98.4 F 82 20 109/69 08/05/19 19:30 97.8 F 93 H 16 102/55 100 08/05/19 19:25 90 14 105/58 100 08/05/19 19:10 100 H 16 97/56 100 08/05/19 19:01 99 H 16 105/52 99 08/05/19 18:45 96 H 16 98/47 100 08/05/19 18:40 104 H 16 93/39 99 08/05/19 18:35 96 H 15 89/40 98 08/05/19 18:30 95 H 15 94/33 100 08/05/19 18:25 103 H 17 98/38 100 08/05/19 18:22 98.8 F 97 H 16 90/29 99 08/05/19 15:38 100 H 116/60 08/05/19 15:17 97 H 116/59 08/05/19 10:30 89 123/62 08/05/19 10:00 88 120/65 08/05/19 09:29 81 113/61 08/05/19 08:59 90 119/62 08/05/19 08:25 97.9 F 18 Intake and Output 08/05/19 08/06/19 08/06/19 23:59 07:59 15:59 Intake Total 1700 360 Output Total 520 1600 Balance 1180 -1240 Intake: IV 1700 Lactated Ringers 1,000 ml 1000 @ 125 mls/hr IV DIRECT DILSHAD Rx#:[id number] Oral 360 Output: Urine 520 1600 Indwelling Catheter 1600 Other: Total, Intake Amount 240 Total, Output Amount 300 Estimated Blood Loss 800 - Exam Breasts: Present: normal Cardiovascular: Present: Regular rate, Normal S1 Lungs: Present: Clear to auscultation, Normal air movement Abdomen: Present: normal appearance, soft, normal bowel sounds. Absent: distention, tenderness, guarding Vulva: both: normal Uterus: Present: normal, firm, fundal height below umbilicus. Absent: bogginess, tenderness Extremities: Present: normal Deep Tendon Reflex Grade: Normal +2 Incision: Present: normal, dry, intact - Labs Labs: Abnormal lab results 08/06/19 Range/Units 06:26 Hgb 8.5 L (10.1-14.3) gm/dl Hct 26.1 L (30.3-42.9) %
[2019-08-06] MEDS: LANSINOH TP PRN (09:55)
[2019-08-06] MEDS: COLACE PO SCH ×2 (09:56→22:15)
[2019-08-06] MEDS: PRENATAL VITAMIN PO SCH (09:56)
[2019-08-06] MEDS: PERCOCET 5/325 PO PRN ×2 (09:56→18:05)
[2019-08-06] MEDS: IBUPROFEN PO SCH ×2 (12:32→18:10)
[2019-08-07] MEDS: IBUPROFEN PO SCH ×5 (00:04→23:53)
[2019-08-07 05:47] LABS: HIV-1 Antibody Differentiation SEE SCANNED RESULT; HIV-2 Antibody Differentiation SEE SCANNED RESULT
[2019-08-07] MEDS: PERCOCET 5/325 PO PRN ×4 (06:07→22:26)
[2019-08-07] MEDS ORDERED: IBUPROFEN PO SCH (08:38)
--- NOTE | 2019-08-07 08:40 | Progress Note ---
Assessment and Plan A: POD#2 s/p primary at term, Asymptomatic anemia P: Routine postoperative care. Anticipate discharge tomorrow. Subjective - Subjective Date of service: 08/07/19 Principal diagnosis: s/p primary section at term Interval history: Pt with no unusual complaints. + flatus. Patient reports: appetite normal, flatus, pain poorly controlled, ambulating normally, no bowel movement : doing well Objective - Vital Signs Latest vital signs: Vital Signs Temp Pulse Resp BP BP Pulse Ox 08/07/19 07:43 97.9 F 92 H 18 114/56 08/07/19 00:41 98.2 F 102 H 20 118/72 97 08/06/19 18:10 18 08/06/19 18:05 18 08/06/19 17:09 98.1 F 94 H 20 123/60 99 08/06/19 12:46 98.0 F 88 18 110/52 98 08/06/19 09:56 18 Intake and Output 08/06/19 08/07/19 08/07/19 22:59 06:59 14:59 Intake Total 600 480 Output Total 400 Balance 200 480 Intake: Oral 240 480 Intake, Free Water 360 Output: Urine 400 Void 400 Other: Total, Intake Amount 240 480 Total, Output Amount 400 Voiding Method Toilet # Voids Void 1 - Exam Breasts: Present: deferred Cardiovascular: Present: Regular rate Lungs: Present: Clear to auscultation Abdomen: Present: soft, normal bowel sounds Uterus: Present: fundal height at umbilicus Extremities: Present: normal Incision: Present: intact
[2019-08-07] MEDS: PRENATAL VITAMIN PO SCH (09:55)
[2019-08-07] MEDS: COLACE PO SCH ×2 (10:00→22:26)
[2019-08-07] MEDS: LANSINOH TP PRN (11:34)
[2019-08-08] MEDS: PERCOCET 5/325 PO PRN ×2 (04:58→10:23)
[2019-08-08] MEDS: IBUPROFEN PO SCH ×2 (06:17→12:13)
--- NOTE | 2019-08-08 08:52 | Progress Note ---
Assessment and Plan A: POD#3 s/p primary at term, Asymptomatic anemia P: Routine postoperative care. Discharge home today Subjective - Subjective Date of service: 08/08/19 Principal diagnosis: s/p primary section at term Interval history: This is a 23 yo at 40+4 weeks here for walkin for leaking noted to be grossly ruptured and 2cm. She has had a CNM and home nurse that was planning to do a home . Records unavailable Patient reports: appetite normal, voiding normally, pain well controlled, flatus, ambulating normally : doing well Objective - Vital Signs Latest vital signs: Vital Signs Temp Pulse Resp BP BP Pulse Ox 08/08/19 02:00 98.4 F 110 H 20 119/62 97 08/07/19 16:08 97.5 F L 93 H 18 119/52 Intake and Output 08/07/19 08/08/19 08/08/19 23:59 07:59 15:59 Intake Total 720 480 Balance 720 480 Intake: Oral 720 480 Other: Total, Intake Amount 240 240 # Voids Void 1 1 - Exam Breasts: Present: normal Cardiovascular: Present: Regular rate, Normal S1 Lungs: Present: Clear to auscultation, Normal air movement Abdomen: Present: normal appearance, soft, normal bowel sounds. Absent: distention, tenderness, guarding Vulva: both: normal Uterus: Present: normal, firm, fundal height below umbilicus. Absent: boggine ss, tenderness Extremities: Present: normal Deep Tendon Reflex Grade: Normal +2 Incision: Present: normal, dry, intact
--- NOTE | 2019-08-08 08:56 | Discharge Summary ---
Providers - Providers Date of Admission: 08/04/19 06:14 Date of discharge: 08/08/19 Attending physician: ARIES COLUNGA 08/07/19 07:12 Consult to Case Management [CONS] Routine Services Needed at Discharge: Electrical Systems Design Engineer Notified:: Notified Case Management. Primary care physician: ARIES COLUNGA Hospitalization Reason for admission: active labor, IUP at term Delivery: Procedure: section Episiotomy: none Laceration: none Incision: dry, intact Other procedures: none complications: none Discharge diagnosis: IUP at term delivered baby: male Hospital course: Patient came in in active labor. Augmentation of labor resulted in NRFHT and delivery via csec. Patient did well PP and discharged home with f/u in 2 weeks for incision check Condition at discharge: Good Disposition: DC-01 TO HOME OR SELFCARE Plan - Discharge Medications Prescriptions: Ferrous Sulfate [Feosol 325 MG tab] 325 mg PO BID #60 tablet Ibuprofen [Motrin] 800 mg PO Q8HR PRN #30 tablet PRN Reason: Pain, Moderate (4-6) oxyCODONE /ACETAMINOPHEN [Percocet 5/325] 1 tab PO Q6HR PRN #40 tablet PRN Reason: Pain - Provider Discharge Summary Activity: routine, no sex for 6 weeks, no strenuous exercise Diet: routine Instructions: routine Additional instructions: [] Smoking cessation referral if applicable(refer to patient education folder for contact #) [] Refer to [facility] Booklet Call your doctor immediately for: * Fever > 100.5 * Heavy vaginal bleeding ( >1 pad per hour) * Severe persistent headache * Shortness of breath * Reddened, hot, painful area to leg or breast * Drainage or odor from incision. * Keep incision clean and dry at all times and follow doctor's instructions regarding bathing/showering - Follow up plan Follow up: ARIES COLUNGA MD [Primary Care Provider] - 08/21/19
[2019-08-08] MEDS: PRENATAL VITAMIN PO SCH (10:23)
[2019-08-08] MEDS: COLACE PO SCH (10:24)
[2019-08-08 14:40] VITALS: BP 115/64
== END 2019-08-08 14:45 | disposition home or self-care (01) | DRG 787 ==
LOC: TRG 02:11 → LD 06:14 → OB 08-05 19:43
PROVIDERS: ADMIT Obstetrics & Gynecology; ATTEND Obstetrics & Gynecology
PROC: 10D00Z1 Extraction of Products of Conception, Low, Open Approach (ICD-10-PCS; principal; 2019-08-05)
PROC: 3E0234Z Introduction of Serum, Toxoid and Vaccine into Muscle, Percutaneous Approach (ICD-10-PCS; 2019-08-06)
DX: O76 Abnormality in fetal heart rate and rhythm complicating labor and delivery (principal); D62 Acute posthemorrhagic anemia; O69.81X0 Labor and delivery complicated by cord around neck, without compression, not applicable or unspecified; O64.0XX0 Obstructed labor due to incomplete rotation of fetal head, not applicable or unspecified; O48.0 Post-term pregnancy; O99.02 Anemia complicating childbirth; Z37.0 Single live birth; Z3A.41 41 weeks gestation of pregnancy; Z23 Encounter for immunization
CPT/HCPCS: 36415; 76816; 76819; 80307; 85014; 85018; 85027; 86592; 86689; 86706; 86762; 86803; 86850; 86900; 86901; 88307; G0378; A6250; C1765; C9250; J0290; J0595; J0690; J1885; J2370; J2405; J2590; J2765; J3490; J7120

== ENCOUNTER 2021-02-09 13:26 | Inpatient (IN) | payer OTHER ==
[~2021-02-09 13:26] MED LIST: SODIUM CHLORIDE 0.9% IRR 1,500 ML BOTTLE IR ONE; WATER FOR IRRIG STERILE 1,500 ML BOTTLE IR ONE; ceFAZolin/STERILE WATER 2 GM/20 ML SYRINGE IV ONE
[2021-02-09] MEDS ORDERED: FAMOTIDINE 20 MG/2 ML INJ IV ONE ×2 (15:42→18:20)
[2021-02-09] MEDS ORDERED: METOCLOPRAMIDE 10 MG/2 ML INJ IV ONE ×2 (15:42→18:20)
[2021-02-09] MEDS ORDERED: BICITRA ORAL LIQD 30ML PO ONE ×2 (15:42→18:20)
[2021-02-09] MEDS ORDERED: OXYTOCIN DRIP 30 UNITS/500 ML BAG IV SCH (16:00)
[2021-02-09] MEDS: LACTATED RINGERS 1,000 ML IV SCH (16:32)
[2021-02-09 17:18] LABS: Basophils % (Auto) 0.4 % (0.0-1.8); Eosinophils # (Auto) 0.1 K/mm3 (0.0-0.4); Eosinophils % (Auto) 1.4 % (0.0-4.3); Hematocrit 28.5 % (30.3-42.9); Hemoglobin 9.3 gm/dl (10.1-14.3); Lymphocytes # (Auto) 1.8 K/mm3 (1.2-5.4); Lymphocytes % (Auto) 21.1 % (13.4-35.0); Mean Corpuscular HGB Conc 33 % (30-34); Mean Corpuscular Volume 78 fl (79-97); Monocytes # (Auto) 0.7 K/mm3 (0.0-0.8); Monocytes % (Auto) 8.1 % (0.0-7.3); Platelet Count 263 K/mm3 (140-440); Red Blood Count 3.68 M/mm3 (3.65-5.03); Red Cell Distribution Width 16.1 % (13.2-15.2)
--- NOTE | 2021-02-09 17:44 | Ultrasound Report ---
ULTRASOUND OBSTETRIC LIMITED ULTRASOUND BIOPHYSICAL PROFILE INDICATION / CLINICAL INFORMATION: evaluate well being. Clinical Gestational Age (GA) in weeks, days: Unknown TECHNIQUE: Transabdominal. COMPARISON: None available. FINDINGS: BREATHING MOVEMENT = 2 GROSS BODY MOVEMENT = 2 TONE = 2 QUALITATIVE AMNIOTIC FLUID VOLUME = 2 TOTAL BIOPHYSICAL SCORE = 8/8 HEART RATE (beats per minute): 156 AMNIOTIC FLUID INDEX (cm) = 10.3 (normal = 7-24 cm) PRESENTATION: Cephalic. ADDITIONAL FINDINGS: None. IMPRESSION: 1. Biophysical Score = 8/8 2. Amniotic fluid index = 10.3 cm. Signer Name: Darlin Lerma MD Signed: 02/09/2021 5:39 PM Workstation Name: [id number]
[2021-02-09] MEDS ORDERED: LACTATED RINGERS 1,000 ML IV SCH (18:30)
--- NOTE | 2021-02-09 18:36 | History and Physical Report ---
History of Present Illness Date of examination: 02/09/21 Date of admission: 02/09/2021 Chief complaint: IUP at 40.1 weeks, previous c/sectionx1 positive ROM plus with MAURICE >10 Patient presented with complaints of contractions, leaking fluid and spotting. On exam pt is 2cm/soft/50%/-4 I had planned for an elective section this afternoon however patient has eaten a bag of peanuts in OB triage. After discussion with Anesthesia, her ERCS will be done in AM as previous scheduled. I will admit patient and allow her to eat dinner, NPO after midnight and proceed with c/section in AM. Past History Past Surgical History: section Family/Genetic History: none Social history: no significant social history - Obstetrical History Expected Date of Delivery: 02/08/21 Actual Gestation: 40 Week(s) 1 Day(s) : 2 Medications and Allergies Allergies Allergy/AdvReac Type Severity Reaction Status Date / Time No Known Allergies Allergy Verified 02/09/21 13:56 Home Medications Medication Instructions Recorded Confirmed Last Taken Type No Known Home Medications [No 02/09/21 02/09/21 Unknown History Reported Home Medications] Active Meds: Active Medications Citric Acid/Sodium Citrate (Bicitra Oral Liqd 30ml) 30 ml PO ONCE ONE Stop: 02/09/21 18:21 Famotidine (Famotidine 20 Mg/2 Ml Inj) 20 mg IV ONCE ONE Stop: 02/09/21 18:21 Lactated Ringer's (Lactated Ringers) 1,000 mls @ 2,250 mls/hr IV PREOP DILSHAD Stop: 02/10/21 16:12 Last Admin: 02/09/21 16:32 Dose: 2,250 mls/hr Documented by: Oxytocin/Sodium Chloride (Pitocin/Ns 30 Unit/500ml) 30 units in 500 mls @ 0 mls/hr IV TITR DILHSAD; Protocol Lactated Ringer's (Lactated Ringers) 1,000 mls @ 2,250 mls/hr IV PREOP DILSHAD Stop: 02/10/21 18:57 Metoclopramide HCl (Metoclopramide 10 Mg/2 Ml Inj) 10 mg IV ONCE ONE Stop: 02/09/21 18:21 - Vital Signs Vital signs: Vital Signs Temp BP 98.7 F 131/58 02/09/21 13:56 02/09/21 13:56 Temp Pulse Resp BP Pulse Ox 99 F 91 H 110/53 100 02/09/21 17:16 02/09/21 17:17 02/09/21 17:17 02/09/21 15:55 - Physical Exam Breasts: Positive: deferred Cardiovascular: Regular rate Lungs: Positive: Clear to auscultation Abdomen: Positive: normal appearance, normal bowel sounds Genitourinary (Female): Positive: normal external genitalia, normal perenium Vagina: Positive: normal moisture Uterus: Positive: enlarged (FH 40cm) Anus/Rectum: Positive: normal perianal skin Extremities: Positive: normal Deep Tendon Reflex Grade: Normal +2 - Obstetrical FHR: category 1 Cervical Dilatation: 2 Cervical Effacement Percentage: 50 station: -4 Results Result Diagrams: 02/09/21 16:06 Abnormal lab results 02/09/21 02/09/21 Range/Units 14:10 16:06 Hgb 9.3 L (10.1-14.3) gm/dl Hct 28.5 L (30.3-42.9) % MCV 78 L (79-97) fl MCH 25 L (28-32) pg RDW 16.1 H (13.2-15.2) % Hendricks % (Auto) 8.1 H (0.0-7.3) % Membranes Rupture Positive A (Negative) All other labs normal. Assessment and Plan IUPa t 40.1 weeks previous c/section possible SROM with adequate MAURICE not in labor(pt declines TOLAC) Plan: admit NPO after midnight informed consent pain med prn CFM Maternal/ well being reassuring overall Reynold Espinoza MD
[2021-02-09] MEDS ORDERED: MORPHINE 2 MG/1 ML INJ IV PRN (18:41)
[2021-02-09] MEDS ORDERED: ACETAMINOPHEN 325 MG TAB PO ONE (18:41)
[2021-02-09] MEDS ORDERED: ZOLPIDEM 5 MG TAB PO PRN (18:41)
[2021-02-09] MEDS ORDERED: TERBUTALINE 1 MG/1 ML INJ SUB-Q ONE (20:51)
[2021-02-10] MEDS ORDERED: fentaNYL 100 MCG/2 ML INJ IV ONE (04:39)
[2021-02-10] MEDS: LACTATED RINGERS 1,000 ML IV SCH ×2 (06:56→11:49)
--- NOTE | 2021-02-10 08:48 | Anesthesia Day of Surgery ---
Anesthesia Day of Surgery - Day of Surgery Patient Examined: Yes Patient H&P Reviewed: Yes Patient is NPO: Yes Beta Blockers: No Cardiac Clearance: No Pulmonary Clearance: No Antonio's Test: N/A
--- NOTE | 2021-02-10 08:50 | Anesthesia Consultation ---
Anesthesia Consult and Med Hx Date of service: 02/10/21 - Airway Anesthetic Teeth Evaluation: Poor ROM Head & Neck: Adequate Mental/Hyoid Distance: Adequate Mallampati Class: Class III Intubation Access Assessment: Possibly Difficult - Pulmonary Exam CTA: Yes - Cardiac Exam Cardiac Exam: RRR - Pre-Operative Health Status ASA Pre-Surgery Classification: ASA3 Proposed Anesthetic Plan: Epidural - Pre-Anesthesia Comment Pre-Anesthesia Comments: c/s 2019, no anesthesia complications - Pulmonary Hx Smoking: No Hx Asthma: No Hx Respiratory Symptoms: No SOB: No COPD: No Hx Pneumonia: No Hx Sleep Apnea: No - Cardiovascular System Hx Hypertension: No Hx Coronary Artery Disease: No Hx Heart Attack/AMI: No Hx Angina: No Hx Percutaneous Transluminal Coronary Angioplasty (PTCA): No Hx Cardia Arrhythmia: No Hx Pacemaker: No Hx Internal Defibrillator: No Hx Valvular Heart Disease: No Hx Heart Murmur: No Hx Peripheral Vascular Disease: No - Central Nervous System Hx Neuromuscular Disorder: No Hx Seizures: No CVA: No Hx Back Pain: No Hx Psychiatric Problems: No - Gastrointestinal Hx Ulcer: No Hx Gastroesophageal Reflux Disease: No - Endocrine Hx Renal Disease: No Hx End Stage Renal Disease: No Hx Cirrhosis: No Hx Liver Disease: No Hx Insulin Dependent Diabetes: No Hx Non-Insulin Dependent Diabetes: No Hx Thyroid Disease: No Hx Hypothyroidism: No Hx Hyperthyroidism: No - Hematic Hx Anemia: Yes Hx Sickle Cell Disease: No - Other Systems Hx Alcohol Use: No Hx Substance Use: No Hx Cancer: No Hx Obesity: Yes
--- NOTE | 2021-02-10 08:55 | Progress Note ---
Labor Epidural - Labor Epidural Start Time: 08:23 Stop Time: 08:34 Performed by:: BLANCHE PERSON Procedure: Patient is requesting a laboring epidural for laboring pain. Patient IDed, H&P reviewed, all questions and concerns were answered, and consent was signed. Timeout was performed at bedside. Patient in sitting position. Sterile prep and drape was performed. [3] ml of 1% lidocaine skin wheal at L[3]- L [4]. 18- gauge Tuohy epidural needle was advanced to loss of resistance with saline technique 8cm. Negative CSF negative blood, Negative paresthesia. Epidural catheter advanced to [12] centimeters. [NEGATIVE] Aspiration [NEGATIVE] test dose. Sterile dressing applied. Patient tolerated procedure.
[2021-02-10] MEDS ORDERED: fentaNYL-BUPIV 2 MCG/ML-0.125% 200 MCG/100 ML BAG EPIDURAL SCH (09:00)
[2021-02-10] MEDS ORDERED: NALOXONE 2 MG/2 ML INJ IV PRN (09:00)
[2021-02-10] MEDS ORDERED: ePHEDrine SULFATE 50 MG/1 ML INJ IV PRN (09:00)
--- NOTE | 2021-02-10 11:28 | Progress Note ---
Subjective - Subjective Date of service: 02/10/21 Interval history: Cateogry 1 tracing NPO, car conditioner to OR for procedure Reynold Espinoza MD Objective - Vital Signs Vital Signs: Vital Signs - 12hr 02/10/21 02/10/21 02/10/21 00:19 03:46 04:47 Temperature 97.8 F Pulse Rate 111 H 86 Respiratory 16 18 Rate Blood Pressure 109/53 124/58 O2 Sat by Pulse Oximetry 02/10/21 02/10/21 02/10/21 08:21 08:23 08:25 Temperature Pulse Rate 98 H 100 H 92 H Respiratory Rate Blood Pressure 116/60 124/59 O2 Sat by Pulse 100 Oximetry 02/10/21 02/10/21 02/10/21 08:26 08:28 08:31 Temperature Pulse Rate 99 H 100 H 97 H Respiratory Rate Blood Pressure 118/59 118/58 O2 Sat by Pulse 100 100 Oximetry 02/10/21 02/10/21 02/10/21 08:34 08:36 08:37 Temperature Pulse Rate 100 H 106 H 105 H Respiratory Rate Blood Pressure 118/58 115/55 O2 Sat by Pulse 99 Oximetry 02/10/21 02/10/21 02/10/21 08:40 08:41 08:43 Temperature Pulse Rate 103 H 95 H 95 H Respiratory Rate Blood Pressure 117/59 113/55 O2 Sat by Pulse 99 Oximetry 02/10/21 02/10/21 02/10/21 08:46 08:49 08:51 Temperature Pulse Rate 93 H 93 H 100 H Respiratory Rate Blood Pressure 113/56 109/56 O2 Sat by Pulse 99 100 Oximetry 02/10/21 02/10/21 02/10/21 08:52 08:55 08:56 Temperature Pulse Rate 100 H 95 H 98 H Respiratory Rate Blood Pressure 107/57 111/55 O2 Sat by Pulse 98 Oximetry 02/10/21 02/10/21 02/10/21 09:01 09:06 09:10 Temperature Pulse Rate 95 H 113 H 105 H Respiratory Rate Blood Pressure 99/50 O2 Sat by Pulse 98 98 Oximetry 02/10/21 02/10/21 02/10/21 09:11 09:16 09:21 Temperature Pulse Rate 102 H 107 H 109 H Respiratory Rate Blood Pressure O2 Sat by Pulse 97 97 97 Oximetry 02/10/21 02/10/21 02/10/21 09:25 09:26 09:31 Temperature Pulse Rate 105 H 99 H 97 H Respiratory Rate Blood Pressure 93/46 O2 Sat by Pulse 97 97 Oximetry 02/10/21 02/10/21 02/10/21 09:36 09:41 09:46 Temperature Pulse Rate 104 H 104 H 107 H Respiratory Rate Blood Pressure 96/44 O2 Sat by Pulse 97 96 96 Oximetry 02/10/21 02/10/21 02/10/21 09:51 09:55 09:56 Temperature Pulse Rate 100 H 100 H 102 H Respiratory Rate Blood Pressure 96/49 O2 Sat by Pulse 97 96 Oximetry 02/10/21 02/10/21 02/10/21 10:01 10:06 10:10 Temperature Pulse Rate 102 H 101 H 94 H Respiratory Rate Blood Pressure 95/53 O2 Sat by Pulse 98 97 Oximetry 02/10/21 02/10/21 02/10/21 10:11 10:16 10:21 Temperature Pulse Rate 98 H 114 H 103 H Respiratory Rate Blood Pressure O2 Sat by Pulse 97 98 96 Oximetry 02/10/21 02/10/21 02/10/21 10:25 10:26 10:31 Temperature Pulse Rate 97 H 99 H 100 H Respiratory Rate Blood Pressure 83/41 O2 Sat by Pulse 97 96 Oximetry 02/10/21 02/10/21 02/10/21 10:36 10:40 10:41 Temperature Pulse Rate 100 H 101 H 105 H Respiratory Rate Blood Pressure 86/44 O2 Sat by Pulse 96 95 Oximetry 02/10/21 02/10/21 02/10/21 10:43 10:46 10:47 Temperature 97.8 F Pulse Rate 95 H 99 H Respiratory Rate Blood Pressure O2 Sat by Pulse 94 95 Oximetry 02/10/21 02/10/21 02/10/21 10:51 10:55 10:56 Temperature Pulse Rate 98 H 95 H 99 H Respiratory Rate Blood Pressure 92/51 O2 Sat by Pulse 96 96 Oximetry 02/10/21 02/10/21 02/10/21 11:01 11:06 11:11 Temperature Pulse Rate 101 H 108 H 101 H Respiratory Rate Blood Pressure 102/51 O2 Sat by Pulse 97 98 97 Oximetry 02/10/21 02/10/21 02/10/21 11:16 11:21 11:25 Temperature Pulse Rate 97 H 103 H 103 H Respiratory Rate Blood Pressure 101/54 O2 Sat by Pulse 95 98 Oximetry 02/10/21 11:26 Temperature Pulse Rate 102 H Respiratory Rate Blood Pressure O2 Sat by Pulse 97 Oximetry - Labs Labs: Abnormal Labs 02/09/21 02/09/21 14:10 16:06 Hgb 9.3 L Hct 28.5 L MCV 78 L MCH 25 L RDW 16.1 H Rains % (Auto) 8.1 H Membranes Rupture Positive A Laboratory Results - last 24 hr 02/09/21 02/09/21 02/09/21 14:10 16:06 16:06 WBC 8.7 RBC 3.68 Hgb 9.3 L Hct 28.5 L MCV 78 L MCH 25 L MCHC 33 RDW 16.1 H Plt Count 263 Lymph % (Auto) 21.1 Rains % (Auto) 8.1 H Eos % (Auto) 1.4 Baso % (Auto) 0.4 Lymph # (Auto) 1.8 Rains # (Auto) 0.7 Eos # (Auto) 0.1 Baso # (Auto) 0.0 Seg Neutrophils % 69.0 Seg Neutrophils # 6.0 Membranes Rupture Positive A Blood Type A POSITIVE Antibody Screen Negative
[2021-02-10] MEDS ORDERED: METOCLOPRAMIDE 10 MG/2 ML INJ IV SCH (12:00)
[2021-02-10] MEDS ORDERED: FAMOTIDINE 20 MG/2 ML INJ IV SCH (12:00)
[2021-02-10] MEDS ORDERED: BICITRA ORAL LIQD 30ML PO SCH (12:00)
[2021-02-10] MEDS ORDERED: ceFAZolin/STERILE WATER 2 GM/20 ML SYRINGE IV NR (12:00)
--- NOTE | 2021-02-10 12:26 | Procedure Note ---
OB Delivery Note - Delivery Date of Delivery: 02/10/21 Surgeon: AMANDA DURAN - Section Postop diagnosis: same section procedure: repeat low transverse Disposition: PACU Complications: none Narrative: Preop diagnosis: IUP at 40.2 weeks, previous section, latent labor with suspected srom Postop diagnosis: Same Procedure: Repeat low transverse section via Pfannenstiel incision Surgeon: Dr. Amanda Duran Anesthesia epidural Complications none EBL 700 ml IV fluids 800mL Urine output 100mL, clear Drains Mcintyre to gravity Findings: Viable female with weight and 8/9, normal uterus tubes and ovaries bilaterally Procedure: Patient was consented in taken to the operating room where she received excellent spinal anesthesia. She was then placed in the dorsal supine position with a leftward tilt. The abdomen was prepped and draped in a sterile fashion, and a timeout was verified. Adequate anesthesia was confirmed prior to the skin incision. A Pfannenstiel skin incision was made with a scalpel taken down to the underlying structures and the fascia was incised in the midline. The incision was extended laterally with curved Salazar scissors, the superior and inferior aspects of the fascial incisions were grasped with Opal clamps and the rectus muscles dissected sharply. The abdomen was entered bluntly in the midline carried down inferiorly with good visualization of the bladder. The vesicouterine peritoneum was tented with Surinamese forceps and incised in the midline with Metzenbaum scissors and the vesicouterine peritoneum taken down sharply. Bladder blade was inserted, the uterine incision was made sharply with a scalpel. The inferior and superior aspect of the uterine incisions were extended bluntly, the baby's head was delivered atraumatically. The remainder of the delivery was atraumatic, a loose nuchal cord was reduced after delivery. The cord was clamped and cut and baby handed to waiting NICU team. An intact placenta with three-vessel cord delivered manually. The uterus was then cleared of all clots and debris and the uterus exteriorized. The uterine incision was closed with 2 layers of 0 chromic with excellent hemostasis. The abdomen was then irrigated with warm normal saline and the uterus placed back into the abdomen atraumatically. A second look at the uterine incision and ensured hemostasis. The peritoneum was closed with 3-0 Vicryl, the rectus muscles approximated with 3-0 Vicryl, and the fascia closed with 0 Vicryl in the usual fashion. The subcuticular structures were closed with interrupted sutures of 3- 0 Vicryl and the skin closed with 4-0 Monocryl. A pressure dressing was applied. All sponge needle and instrument counts were correct x2. There were no complications. Mom to the recovery area and baby to NICU in stable condition. EBL Jonathan Duran MD
[2021-02-10] MEDS ORDERED: ceFAZolin/STERILE WATER 2 GM/20 ML SYRINGE IV ONE (12:30)
[2021-02-10] MEDS ORDERED: SODIUM CHLORIDE 0.9% 500 ML 500 ML IV SCH (12:30)
[2021-02-10] MEDS ORDERED: ONDANSETRON 4 MG/2 ML INJ ONE ×2 (12:38)
[2021-02-10] MEDS ORDERED: LIDOCAINE 2%/EPINEPHRINE 1:200,000 VIAL (20 ML) INFILTRATI ONE (12:39)
[2021-02-10] MEDS ORDERED: SODIUM CHLORIDE 0.9% IRR 1,500 ML BOTTLE IR ONE (12:40)
[2021-02-10] MEDS ORDERED: WATER FOR IRRIG STERILE 1,500 ML BOTTLE IR ONE (12:40)
[2021-02-10] MEDS ORDERED: dexAMETHasone 20 MG/5 ML VIAL ONE (13:11)
[2021-02-10] MEDS ORDERED: SODIUM CHLORIDE 0.9% 100 ML ONE (13:11)
[2021-02-10] MEDS ORDERED: BUPIVACAINE/PF (0.5%) 5 MG/1 ML 30 ML VIAL INFILTRATI ONE (13:11)
[2021-02-10] MEDS ORDERED: MORPHINE 2 MG/1 ML INJ IV PRN (13:30)
[2021-02-10] MEDS ORDERED: NALOXONE 0.4 MG/1 ML INJ IV PRN ×2 (13:30→14:27)
[2021-02-10] MEDS ORDERED: LANOLIN/ZINC/DIMETHICONE (LANSINOH) 7 GM TP PRN (13:30)
[2021-02-10] MEDS ORDERED: WITCH HAZEL/ GLYCERIN PAD TP PRN (13:30)
[2021-02-10] MEDS ORDERED: KETOROLAC 30 MG/1 ML INJ IV PRN ×2 (13:30)
[2021-02-10] MEDS ORDERED: MORPHINE 4 MG/1 ML INJ IV PRN (13:30)
[2021-02-10] MEDS ORDERED: OXYTOCIN DRIP 30 UNITS/500 ML BAG IV SCH (14:00)
[2021-02-10] MEDS ORDERED: ONDANSETRON 4 MG/2 ML INJ IV PRN (14:27)
[2021-02-10] MEDS ORDERED: HYDROmorphone 1 MG/1 ML INJ IV PRN (14:27)
--- NOTE | 2021-02-10 14:27 | Progress Note ---
Objective - Constitutional Vitals: Vital Signs - 12hr 02/10/21 02/10/21 02/10/21 03:46 04:47 08:21 Temperature 97.8 F Pulse Rate 86 98 H Respiratory 16 18 Rate Blood Pressure 124/58 O2 Sat by Pulse 100 Oximetry 02/10/21 02/10/21 02/10/21 08:23 08:25 08:26 Temperature Pulse Rate 100 H 92 H 99 H Respiratory Rate Blood Pressure 116/60 124/59 O2 Sat by Pulse 100 Oximetry 02/10/21 02/10/21 02/10/21 08:28 08:31 08:34 Temperature Pulse Rate 100 H 97 H 100 H Respiratory Rate Blood Pressure 118/59 118/58 118/58 O2 Sat by Pulse 100 Oximetry 02/10/21 02/10/21 02/10/21 08:36 08:37 08:40 Temperature Pulse Rate 106 H 105 H 103 H Respiratory Rate Blood Pressure 115/55 117/59 O2 Sat by Pulse 99 Oximetry 02/10/21 02/10/21 02/10/21 08:41 08:43 08:46 Temperature Pulse Rate 95 H 95 H 93 H Respiratory Rate Blood Pressure 113/55 113/56 O2 Sat by Pulse 99 99 Oximetry 02/10/21 02/10/21 02/10/21 08:49 08:51 08:52 Temperature Pulse Rate 93 H 100 H 100 H Respiratory Rate Blood Pressure 109/56 107/57 O2 Sat by Pulse 100 Oximetry 02/10/21 02/10/21 02/10/21 08:55 08:56 09:01 Temperature Pulse Rate 95 H 98 H 95 H Respiratory Rate Blood Pressure 111/55 O2 Sat by Pulse 98 98 Oximetry 02/10/21 02/10/21 02/10/21 09:06 09:10 09:11 Temperature Pulse Rate 113 H 105 H 102 H Respiratory Rate Blood Pressure 99/50 O2 Sat by Pulse 98 97 Oximetry 02/10/21 02/10/21 02/10/21 09:16 09:21 09:25 Temperature Pulse Rate 107 H 109 H 105 H Respiratory Rate Blood Pressure 93/46 O2 Sat by Pulse 97 97 Oximetry 02/10/21 02/10/21 02/10/21 09:26 09:31 09:36 Temperature Pulse Rate 99 H 97 H 104 H Respiratory Rate Blood Pressure O2 Sat by Pulse 97 97 97 Oximetry 02/10/21 02/10/21 02/10/21 09:41 09:46 09:51 Temperature Pulse Rate 104 H 107 H 100 H Respiratory Rate Blood Pressure 96/44 O2 Sat by Pulse 96 96 97 Oximetry 02/10/21 02/10/21 02/10/21 09:55 09:56 10:01 Temperature Pulse Rate 100 H 102 H 102 H Respiratory Rate Blood Pressure 96/49 O2 Sat by Pulse 96 98 Oximetry 02/10/21 02/10/21 02/10/21 10:06 10:10 10:11 Temperature Pulse Rate 101 H 94 H 98 H Respiratory Rate Blood Pressure 95/53 O2 Sat by Pulse 97 97 Oximetry 02/10/21 02/10/21 02/10/21 10:16 10:21 10:25 Temperature Pulse Rate 114 H 103 H 97 H Respiratory Rate Blood Pressure 83/41 O2 Sat by Pulse 98 96 Oximetry 02/10/21 02/10/21 02/10/21 10:26 10:31 10:36 Temperature Pulse Rate 99 H 100 H 100 H Respiratory Rate Blood Pressure O2 Sat by Pulse 97 96 96 Oximetry 02/10/21 02/10/21 02/10/21 10:40 10:41 10:43 Temperature Pulse Rate 101 H 105 H 95 H Respiratory Rate Blood Pressure 86/44 O2 Sat by Pulse 95 94 Oximetry 02/10/21 02/10/21 02/10/21 10:46 10:47 10:51 Temperature 97.8 F Pulse Rate 99 H 98 H Respiratory Rate Blood Pressure O2 Sat by Pulse 95 96 Oximetry 02/10/21 02/10/21 02/10/21 10:55 10:56 11:01 Temperature Pulse Rate 95 H 99 H 101 H Respiratory Rate Blood Pressure 92/51 O2 Sat by Pulse 96 97 Oximetry 02/10/21 02/10/21 02/10/21 11:06 11:11 11:16 Temperature Pulse Rate 108 H 101 H 97 H Respiratory Rate Blood Pressure 102/51 O2 Sat by Pulse 98 97 95 Oximetry 02/10/21 02/10/21 02/10/21 11:21 11:25 11:26 Temperature Pulse Rate 103 H 103 H 102 H Respiratory Rate Blood Pressure 101/54 O2 Sat by Pulse 98 97 Oximetry 02/10/21 02/10/21 02/10/21 11:31 11:36 11:40 Temperature Pulse Rate 102 H 101 H 101 H Respiratory Rate Blood Pressure 94/53 O2 Sat by Pulse 97 97 Oximetry 02/10/21 02/10/21 02/10/21 11:41 11:46 11:51 Temperature Pulse Rate 113 H 101 H 104 H Respiratory Rate Blood Pressure O2 Sat by Pulse 98 98 97 Oximetry 02/10/21 02/10/21 02/10/21 11:55 11:56 12:01 Temperature Pulse Rate 100 H 103 H 105 H Respiratory Rate Blood Pressure 98/52 O2 Sat by Pulse 98 97 Oximetry 02/10/21 02/10/21 12:06 12:10 Temperature Pulse Rate 103 H 98 H Respiratory Rate Blood Pressure 100/53 O2 Sat by Pulse 98 Oximetry - Labs CBC & Chem 7: 02/09/21 16:06 Labs: Abnormal lab results 02/09/21 02/09/21 02/09/21 Range/Units 14:10 16:06 16:06 Hgb 9.3 L (10.1-14.3) gm/dl Hct 28.5 L (30.3-42.9) % MCV 78 L (79-97) fl MCH 25 L (28-32) pg RDW 16.1 H (13.2-15.2) % [place] % (Auto) 8.1 H (0.0-7.3) % Membranes Rupture Positive A (Negative) Crossmatch See Detail Regional Anesthesia Block - Regional Anesthesia Block Start Time: 13:48 Stop Time: 13:50 Performed By:: BLANCHE PERSON Procedure: Patient consented for TAP block for post surgical pain management. Patient identified, monitors placed, and time out performed. TAP identified bilaterally via ultrasound. Skin prepped bilaterally with [chlorhexidine] and [22g stimuplex] needle advanced to the TAP. [Marcaine 0.22% 35ml] injected under ultrasound guidance on the [left] side. [Marcaine 0.22% 35ml] injected under ultrasound guidance on the [right] side. Negative aspiration every 5mL, No change in heart rate or rhythm. Patient tolerated the procedure well. No apparent complications seen.
[2021-02-10] MEDS: HYDROcodone/ACETAMINOPHEN 5-325 MG TAB PO PRN (20:55)
[2021-02-11 00:43] LABS: Hematocrit 29.1 % (30.3-42.9); Hemoglobin 9.5 gm/dl (10.1-14.3)
[2021-02-11] MEDS: HYDROcodone/ACETAMINOPHEN 5-325 MG TAB PO PRN ×3 (03:17→20:15)
[2021-02-11] MEDS: IBUPROFEN 600 MG TAB PO PRN ×2 (05:45→14:45)
--- NOTE | 2021-02-11 09:40 | Progress Note ---
Assessment and Plan A: S/P Repeat LTCS Asymptomatic anemia Covid pos P: Continue routine pp care Encourage ambulation Cont Fe as prescribed D/c home in 24-48 hours Subjective - Subjective Date of service: 02/11/21 Principal diagnosis: s/p repeat LTCS Patient reports: appetite normal, voiding normally, pain well controlled, flatus, ambulating normally [place]: doing well, bottle feeding Objective - Vital Signs Latest vital signs: Vital Signs Temp Pulse Resp BP BP Pulse Ox 02/11/21 07:50 98.1 F 79 18 118/67 98 02/11/21 05:45 18 02/11/21 03:50 98.2 F 78 18 121/77 97 02/11/21 03:17 18 02/11/21 01:02 98.2 F 82 18 112/58 98 02/10/21 21:02 98.0 F 100 H 18 121/64 98 02/10/21 20:55 18 02/10/21 18:03 97.7 F 88 18 124/65 98 02/10/21 15:04 98.0 F 89 16 137/48 99 02/10/21 14:30 97.9 F 78 16 119/56 100 02/10/21 14:15 80 18 129/60 99 02/10/21 14:00 88 17 118/70 99 02/10/21 13:45 90 22 111/46 99 02/10/21 13:40 88 23 110/48 99 02/10/21 13:35 97.5 F L 91 H 26 H 101/43 99 02/10/21 12:10 98 H 100/53 02/10/21 12:06 103 H 98 02/10/21 12:01 105 H 97 02/10/21 11:56 103 H 98 02/10/21 11:55 100 H 98/52 02/10/21 11:51 104 H 97 02/10/21 11:46 101 H 98 02/10/21 11:41 113 H 98 02/10/21 11:40 101 H 94/53 02/10/21 11:36 101 H 97 02/10/21 11:31 102 H 97 02/10/21 11:26 102 H 97 02/10/21 11:25 103 H 101/54 02/10/21 11:21 103 H 98 02/10/21 11:16 97 H 95 02/10/21 11:11 101 H 102/51 97 02/10/21 11:06 108 H 98 02/10/21 11:01 101 H 97 02/10/21 10:56 99 H 96 02/10/21 10:55 95 H 92/51 02/10/21 10:51 98 H 96 02/10/21 10:47 97.8 F 02/10/21 10:46 99 H 95 02/10/21 10:43 95 H 94 02/10/21 10:41 105 H 95 02/10/21 10:40 101 H 86/44 02/10/21 10:36 100 H 96 02/10/21 10:31 100 H 96 02/10/21 10:26 99 H 97 02/10/21 10:25 97 H 83/41 02/10/21 10:21 103 H 96 02/10/21 10:16 114 H 98 02/10/21 10:11 98 H 97 02/10/21 10:10 94 H 95/53 02/10/21 10:06 101 H 97 02/10/21 10:01 102 H 98 02/10/21 09:56 102 H 96 02/10/21 09:55 100 H 96/49 02/10/21 09:51 100 H 97 02/10/21 09:46 107 H 96 02/10/21 09:41 104 H 96/44 96 Intake and Output 02/10/21 02/11/21 02/11/21 22:59 06:59 14:59 Intake Total 720 400 Output Total 3100 4200 Balance -2380 -3800 Intake: Oral 240 400 Intake, Free Water 480 Output: Urine 3100 4200 Indwelling Catheter 2300 1500 Uretheral ([place]cin[place]re) 800 1500 Void 1200 Other: Total, Intake Amount 240 200 Total, Output Amount 400 600 - Exam Breasts: Present: normal Abdomen: Present: normal appearance, soft, normal bowel sounds Vulva: both: normal Uterus: Present: normal, firm, fundal height below umbilicus Extremities: Present: normal Incision: Present: normal, dry, intact - Labs Labs: Abnormal lab results 02/09/21 02/10/21 02/11/21 Range/Units 16:06 Unknown 00:32 Hgb 9.5 L (10.1-14.3) gm/dl Hct 29.1 L (30.3-42.9) % Coronavirus (PCR) Positive A (Negative) Crossmatch See Detail
[2021-02-11] MEDS: FERROUS SULFATE 325 MG TAB PO SCH ×2 (10:17→21:57)
[2021-02-12] MEDS: IBUPROFEN 600 MG TAB PO PRN ×2 (04:24→09:49)
[2021-02-12] MEDS: FERROUS SULFATE 325 MG TAB PO SCH (09:49)
--- NOTE | 2021-02-12 12:37 | Progress Note ---
Assessment and Plan A: POD #2 Asymptomatic Anemia +Covid (Asymptomatic) P: Follow Routine PostOP Orders Continue PO FeSO4 Isolation Precautions D/C home today per Patient Request RTO in One Week Subjective - Subjective Date of service: 02/12/21 Principal diagnosis: s/p repeat LTCS Patient reports: appetite normal, voiding normally, pain well controlled, flatus, ambulating normally [place]: doing well, bottle feeding (and ) Objective - Vital Signs Latest vital signs: Vital Signs Temp Pulse Resp BP BP Pulse Ox 02/12/21 09:49 16 02/12/21 08:15 98.2 F 85 18 117/51 96 02/12/21 05:24 18 02/12/21 04:24 18 02/12/21 00:00 98.6 F 67 16 101/77 02/11/21 21:21 97.9 F 82 18 132/52 98 02/11/21 21:15 18 02/11/21 20:15 18 Intake and Output 02/11/21 02/12/21 02/12/21 22:59 06:59 14:59 Intake Total 300 Balance 300 Intake: Intake, Free Water 300 Other: # Voids Void 1 - Exam Breasts: Present: normal Cardiovascular: Present: Regular rate Lungs: Present: Clear to auscultation, Normal air movement Abdomen: Present: normal appearance, soft, normal bowel sounds Uterus: Present: normal, firm, fundal height below umbilicus Extremities: Present: normal Incision: Present: normal, dry, intact
--- NOTE | 2021-02-12 12:38 | Discharge Summary ---
Providers - Providers Date of Admission: 02/09/21 18:25 Date of discharge: 02/12/21 Attending physician: AMANDA DURAN MD Primary care physician: WILNER GOMEZ Hospitalization Reason for admission: rupture of membranes Delivery: Procedure: repeat low transverse Episiotomy: none Laceration: none Incision: normal, dry, intact Other procedures: none complications: none Discharge diagnosis: IUP at term delivered baby: female Condition at discharge: Good Disposition: DC-01 TO HOME OR SELFCARE Plan - Discharge Medications Prescriptions: Ibuprofen [Motrin] 600 mg PO Q8H PRN #60 tablet PRN Reason: Pain oxyCODONE /ACETAMINOPHEN [Percocet 5/325] 1 tab PO Q6HR PRN #20 tablet PRN Reason: Pain - Provider Discharge Summary Activity: routine, no sex for 6 weeks, no heavy lifting 4 weeks, no strenuous exercise Diet: routine Instructions: routine Additional instructions: [] Smoking cessation referral if applicable(refer to patient education folder for contact #) [] Refer to [facility] Booklet Call your doctor immediately for: * Fever > 100.5 * Heavy vaginal bleeding ( >1 pad per hour) * Severe persistent headache * Shortness of breath * Reddened, hot, painful area to leg or breast * Drainage or odor from incision. * Keep incision clean and dry at all times and follow doctor's instructions regarding bathing/showering - Follow up plan Follow up: WILNER GOMEZ MD [Primary Care Provider] - 7 Days
[2021-02-12 18:15] VITALS: BP 113/65
== END 2021-02-12 17:45 | disposition home or self-care (01) | DRG 765 ==
LOC: TRG 13:26 → APU 13:27 → LD 18:25 → TRG 18:33 → OB 02-10 18:45
PROVIDERS: ADMIT Obstetrics & Gynecology; ATTEND Obstetrics & Gynecology
PROC: 10D00Z1 Extraction of Products of Conception, Low, Open Approach (ICD-10-PCS; principal; 2021-02-10)
DX: O34.211 Maternal care for low transverse scar from previous cesarean delivery (principal); U07.1 COVID-19; O98.52 Other viral diseases complicating childbirth; O99.02 Anemia complicating childbirth; Z37.0 Single live birth; Z3A.40 40 weeks gestation of pregnancy; D64.9 Anemia, unspecified
CPT/HCPCS: 36415; 76815; 76819; 84112; 85014; 85018; 85025; 86850; 86900; 86901; 86920; 99211; G0378; G0463; J0690; J1100; J2405; J2765; J3010; J3105; J7120; U0003